=== PATIENT | female | born 1975 | race African-American/Black ===

== ENCOUNTER 2017-06-25 20:53 | Inpatient (IN) | payer OTHER ==
[~2017-06-25] VITALS: Ht 160 cm; Wt 56.3 kg
[2017-06-25 21:25] LABS: microscopic required? NO
[2017-06-25 21:51] LABS: UA SPECIFIC GRAVITY <=1.005 (1.005-1.035); urine erythrocyte NEGATIVE (NEGATIVE)
[2017-06-25 22:30] LABS: CALCIUM 8.8 mg/dL (8.5-10.1); CARBON DIOXIDE 19.2 mmol/L (21-32); CHLORIDE SERUM 104 mmol/L (98-107); CREATININE SERUM 0.9 mg/dL (0.6-1.0); GFR1 > 60 mL/min; GLUCOSE SERUM 123 mg/dL (74-106); POTASSIUM SERUM 3.3 mmol/L (3.5-5.1); SODIUM SERUM 136 mmol/L (136-145)
[2017-06-25 22:34] LABS: ALBUMIN 3.5 g/dL (3.4-5.0); ALKALINE PHOSPHATASE 61 U/L (46-116); ALT/SGPT 28 U/L (14-59); AMYLASE 78 U/L (25-115); AST/SGOT 21 U/L (15-37); BILIRUBIN TOTAL 0.23 mg/dL (0.20-1.00); LIPASE 125 IU/L (73-393); TOTAL PROTEIN, SERUM 7.6 g/dL (6.4-8.2)
[2017-06-25 23:13] LABS: AMPHETAMINE QUAL UR NONE DETECTED (NEG <=1000)
[2017-06-25 23:34] LABS: BASOPHIL % 0.3 % (0-2); PLATELET COUNT 196 x10^3mcL (130-400); RED CELL DISTRIBUTION WIDTH 13.3 % (11.5-14.5)
[2017-06-26] VITALS (11 sets, daily range): BP systolic 114–193; BP diastolic 69–117; Ht 160 cm; Wt 56.3 kg
[2017-06-26 02:50] LABS: MAGNESIUM 2.3 mg/dL (1.8-2.4); PHOSPHOROUS 2.5 mg/dL (2.5-4.9)
[2017-06-26 02:56] LABS: T3 TOTAL 1.66 ng/mL
[2017-06-26 03:13] LABS: FREE T4 0.99 ng/dL (0.76-1.46); FREE THYROXINE INDEX 2.7 ug/dL (1.4-4.5); T4(THYROXINE) 9.8 ug/dL (4.7-13.3)
[2017-06-26 12:25] LABS: microscopic required? NO
[2017-06-26 13:06] LABS: UA SPECIFIC GRAVITY 1.015 (1.005-1.035); urine erythrocyte NEGATIVE (NEGATIVE)
[2017-06-27 05:55] VITALS: BP 144/88
[2017-06-27 06:20] LABS: BASOPHIL % 0.6 % (0-2); PLATELET COUNT 208 x10^3mcL (130-400); RED CELL DISTRIBUTION WIDTH 13.3 % (11.5-14.5)
[2017-06-27 06:32] LABS: CALCIUM 8.1 mg/dL (8.5-10.1); CARBON DIOXIDE 23.4 mmol/L (21-32); CHLORIDE SERUM 104 mmol/L (98-107); CREATININE SERUM 0.8 mg/dL (0.6-1.0); GFR1 > 60 mL/min; GLUCOSE SERUM 88 mg/dL (74-106); MAGNESIUM 2.2 mg/dL (1.8-2.4); PHOSPHOROUS 2.8 mg/dL (2.5-4.9); POTASSIUM SERUM 3.9 mmol/L (3.5-5.1); SODIUM SERUM 135 mmol/L (136-145)
[2017-06-27 09:54] VITALS: BP 169/92
[2017-06-27 14:05] VITALS: BP 148/95
[2017-06-27] MEDS ORDERED: NOR5 PO (14:46)
[2017-06-27] MEDS ORDERED: LOT20 PO (14:46)
[2017-06-27] MEDS ORDERED: METOPROLOL TART25 M1 PO (14:46)
[2017-06-27 14:52] VITALS: BP 148/95
== END 2017-06-27 16:05 | disposition home or self-care (01) | DRG 199 ==
LOC: ED 20:53 → DU 06-26 01:10
PROVIDERS: Emergency Medicine; Family Medicine; Internal Medicine Pulmonary Disease
DX: I16.0 Hypertensive urgency (principal); E87.6 Hypokalemia; I10 Essential (primary) hypertension; F41.1 Generalized anxiety disorder; K59.09 Other constipation; Z88.5 Allergy status to narcotic agent; Z88.6 Allergy status to analgesic agent; Z83.3 Family history of diabetes mellitus; Z82.49 Family history of ischemic heart disease and other diseases of the circulatory system
CPT/HCPCS: 83880; 84439; 85378; J1200; J2270; J2405; J2550; J7030; Q0092; Q0163